=== PATIENT | male | born 1930 | race Caucasian/White ===

== ENCOUNTER 2016-12-08 13:05 | Inpatient (IN) | payer OTHER, MEDICARE ==
[2016-12-08] VITALS (16 sets, daily range): BP systolic 72–147; BP diastolic 31–101
[~2016-12-08] VITALS: Ht 177.8 cm; Wt 69.9 kg
--- NOTE | ~2016-12-08 | HC ---
[facility] [place] [address] CONSULTATION Name: ARABELLA WHITE Room #: 245-P [facility] IN M.R.#: [id number] Admission: 12/08/16 Attend Phys: Evin Frausto MD Discharge: Date of : 31 Report #: [id number] THIS REPORT FOR: //name// CC: Evin Church Kayodevicky DATE OF SERVICE: 12/08/2016 DATE OF SERVICE: 12/08/2016. REASON FOR CONSULTATION: Sepsis. IMPRESSION: 1. Severe sepsis with shock requiring fluids and pressors. 2. Possible perforated viscus per CT scan. 3. Hypertension. 4. Acute renal failure secondary to sepsis and dehydration. 5. History of dementia. PLAN: We will check with primary to see if they wish surgical consultation. In this situation, would tend toward nonaggressive abdominal but we will check if this was discussed with the family. HISTORY OF PRESENT ILLNESS: An 86-year-old male with history of dementia who had progressive worsening over the last few days, becoming more lethargic, not eating. No definite chest pain or abdominal pain, brought to the emergency room because of lethargy and a fall this morning. PAST MEDICAL HISTORY: ALLERGIES: None known. FAMILY HISTORY: Negative for lung disease. SOCIAL HISTORY: Negative ETOH or drug use. His son-in-law did not relate that he smoked. REVIEW OF SYSTEMS: Per chart. PHYSICAL EXAMINATION: VITAL SIGNS: The patient was seen in the emergency room, temperature 101, pulse 88, respiratory rate is 25, and BP 87/43. LUNGS: Decreased. HEART: Regular. The patient awakened during the exam. ABDOMEN: Bowel sounds present. Soft. Nondistended. EXTREMITIES: Right and outward rotation of right leg, son-in-law relates this [facility] [place] [address] [place] [address] CONSULTATION Name: WHITEARABELLA Harsh Room #: 245-P ADM IN M.R.#: [id number] Admission: 12/08/16 Attend Phys: Evin Frausto MD Discharge: Date of : 31 Report #: [id number] is an old situation. LABORATORY AND DIAGNOSTIC DATA: BUN 41, creatinine 3.3. Procalcitonin 177.45. PH 7.38, pCO2 of 36, pO2 of 68 on room air. Lactate was 3.09. CT abdomen and pelvis showed mural thickening of the mid, distal sigmoid colon consistent with colitis; tiny pockets of gas along anterior and inferior aspects of the bladder consistent with free air. His UA showed bacteria greater than 30 minutes, blood 3+. INR 1.2. Total bili 1.3, albumin 3.1. Chest x-ray showed no acute. CT head showed chronic change. We will follow with you. By: 1916 0111 Jackson Beard MD /nt
--- NOTE | ~2016-12-08 | HC ---
[facility] [place] [address] CONSULTATION Name: ARABELLA WHITE Room #: 245-P [facility] IN .R.#: [id number] Admission: 12/08/16 Attend Phys: Evin Frausto MD Discharge: Date of : 31 Report #: [id number] THIS REPORT FOR: //name// CC: Evin Bates INFECTIOUS DISEASE CONSULTATION REASON FOR CONSULTATION: I was asked to evaluate concerning septic shock. HISTORY OF PRESENT ILLNESS: The patient is an 86-year-old with advanced dementia, who lives at home with his family members. Four-day history of progressive lethargy and confusion. Because of this, he presented through the Emergency Room. He has had poor oral intake. No nausea, vomiting, diarrhea. In the Emergency Room, he had temperature of 38.3 with blood pressure 72/41, pulse of 88, respirations 25 and pulse ox of 98% on room air. He has received 4 liters of IV fluids. Now in the Intensive Care Unit. Unable to give any further details of his history. He is on 8 mcg of Levophed. He has a right upper extremity PICC. Indwelling Pena catheter with brown urine. ALLERGIES: None known. MEDICATIONS: As noted on his MAR, having been given vancomycin and Zosyn in the Emergency Room. PAST MEDICAL HISTORY: Hyperlipidemia and dementia. FAMILY HISTORY: Noncontributory. SOCIAL HISTORY: Nonsmoker, no significant alcohol intake. REVIEW OF SYSTEMS: Noted above. PHYSICAL EXAMINATION: VITAL SIGNS: Temperature on admission 101 degrees, blood pressure now 107/33, pulse 86, and afebrile. He had increased muscle tone. GENERAL: He was alert and cooperative. Again, unable to give me any history. Oxygen saturation on room air was adequate. He was conversant. Right upper extremity central catheter, PICC was unremarkable. He had peripheral IV in his left arm and he has left EJ. HEENT: Remarkable for dry mucous membranes. Increased muscle tone, making it difficult to assess for nuchal rigidity. LUNGS: Clear. HEART: Regular, without appreciable murmur. ABDOMEN: Firm. Mild diffuse tenderness, no guarding. No hepatosplenomegaly or mass appreciated. [facility] [address] [place] [address] CONSULTATION Name: ARABELLA WHITE Room #: 245-P ADM IN [facility].#: [id number] Admission: 12/08/16 Attend Phys: Evin Frausto MD Discharge: Date of : 31 Report #: [id number] GENITOURINARY: External genitalia unremarkable with indwelling Pena catheter. He was incontinent of soft stool. EXTREMITIES: Unremarkable. LABORATORY STUDIES: Procalcitonin 172, sodium 141, potassium 3.8, bicarbonate 24, creatinine 3.3, glucose 67, AST 42, bilirubin 1.3, alkaline phosphatase 170, ALT 27, albumin at 3.1. Lactate 12.6, INR 1.2. Hemoglobin 12.3, platelet count 187,000. WBC 14.1 with 33% bands. MRSA PCR is pending. Urinalysis: Few wbc's, many rbc's, many bacteria. ABG on room air: pO2 of 67, pCO2 of 35, pH 7.38. Blood cultures are pending. Chest x-ray: No acute process. CT scan of the head: No acute process. CT scan of the abdomen and pelvis: Basilar atelectasis, mild cardiomegaly, large left renal cyst up to 9.6 cm in diameter, 5 mm nonobstructing right renal calculus, 4 mm calculus within the proximal right ureter resulting in mild to moderate right hydronephrosis, distal ureters and urinary bladder unremarkable. Mural thickening of the mid distal sigmoid colon and rectum. Tiny pocket of gas along the anterior-anterior margin of the urinary bladder. IMPRESSION: An 86-year-old with septic shock, leukocytosis with marked left shift, acute renal failure, right ureteral obstruction and air in the bladder concerning for complicated pyelonephritis. Also, has evidence of colonic thickening to the distal colon. The patient is not having any diarrhea; therefore, this is indeterminate in etiology at this time. Underlying Alzheimer's dementia. RECOMMENDATION: Full ICU support with sepsis protocol, broad IV antibiotic therapy. We will have Urology assess the patient. <ELECTRONICALLY SIGNED> By: Steven Sommer MD 12/09/16 1147 [id number] Steven Sommer MD /nt
--- NOTE | ~2016-12-08 | EKG ---
[address] [place] [address] ELECTROCARDIOGRAM REPORT Name: CHRISTOPHERARABELLA Harsh Room #: 245-P ADM IN M.R.#: [id number] Admission: 12/08/16 Attend Phys: Evin Frausto MD Discharge: Date of : 31 Report #: [id number] THIS REPORT FOR: //name// [facility] ED Test Date: 2016-12-08 Test Time: 13:07:54 Pat Name: ARABELLA WHITE Department: Room: Counts include 234 beds at the [facility] Gender: M Client Success Specialist: PRIYA : 1930 Requested By: Earlene Casiano Order Number: [id number] MD: Toni Miranda Measurements Intervals [place] Rate: 90 P: 63 MI: 146 QRS: 74 QRSD: 132 T: -50 QT: 397 QTc: 486 Interpretive Statements Sinus rhythm Left bundle branch block No previous ECG available for comparison Electronically Signed On 12-09-2016 8:21:07 CDT by Toni Miranda [email or web address] <ELECTRONICALLY SIGNED> By: Toni Miranda MD, [facility] 12/09/16 0821 1307 1307 Toni Miranda MD, FACC /EPI
--- NOTE | ~2016-12-08 | H ---
[facility] [place] [address] HISTORY AND PHYSICAL Name: ARABELLA WHITE Room #: 245-P ADM IN M.R.#: [id number] Admission: 12/08/16 Attend Phys: Evin Frausto MD Discharge: Date of : 31 Report #: [id number] THIS REPORT FOR: //name// CC: Evin Juarez DATE OF SERVICE: 12/08/2016 DATE OF SERVICE: 12/08/2016 CHIEF COMPLAINT: Lethargy HISTORY OF PRESENT ILLNESS: The patient has underlying dementia and presently is fairly weak and not able to provide much history. History is obtained from his son-in-law present at bedside. The patient is an 86-year-old gentleman with fairly advanced dementia who lives at home with his son-in-law. He is usually able to feed himself and ambulate; however, he has been getting progressively more confused over the last 3-4 days and has been more lethargic and appearing unwell. Per his son-in-law present at bedside, he has not really reported any significant specific complaints of pain, shortness of breath, chest pain, nausea, vomiting, diarrhea or other problems. He was brought to the emergency room today where he was noted to have several signs suggestive of severe sepsis as well as profound hypotension with blood pressures in the 60-70 systolic range. He is being treated empirically for severe sepsis and is being admitted to the ICU at this time. PAST MEDICAL HISTORY: Includes: 1. Dementia. 2. Hyperlipidemia. SOCIAL HISTORY: No alcohol or drug use reported. MEDICATIONS: Refer to reconciliation note. ALLERGIES: NO KNOWN DRUG ALLERGIES. REVIEW OF SYSTEMS: Unable to obtain review of systems as the patient is confused. FAMILY HISTORY: Not relevant in this elderly gentleman. PHYSICAL EXAMINATION: VITAL SIGNS: Afebrile, pulse of 87, respiratory rate 16, blood pressure 88/41, O2 sat 98% on nasal cannula. GENERAL: Elderly gentleman in no acute distress, awake and interactive, though [facility] [place] [address] HISTORY AND PHYSICAL Name: CHRISTOPHERARABELLA Harsh Room #: 245-P [facility] IN ..#: [id number] Admission: 12/08/16 Attend Phys: Evin Frausto MD Discharge: Date of : 31 Report #: [id number] not oriented. CARDIOVASCULAR: S1 and S2 present, regular. RESPIRATORY: Air entry present bilaterally. ABDOMEN: Soft, nontender. EXTREMITIES: Without edema. NEUROLOGIC: Awake, alert and able to nod to questions; however, not well oriented, no obvious focality. SKIN: Dry. LABS AND INVESTIGATIONS: CBC notable for leukocytosis of 14.1. Hemoglobin 12.3, 33% bands noted. ABG with pH 7.3, pCO2 of 29, pO2 of 75. Prior VBG with lactic acidosis 7.7, down from prior lactic acidosis of 12.6. Chemistry with BUN and creatinine elevation at 33 and 3.3. Urinalysis with trace ketones, trace leukocyte esterase, bacteria as well as wbc's noted. RADIOLOGIC IMAGING: Chest x-ray shows no acute findings. CT head shows no acute findings. ASSESSMENT AND PLAN: This is a critically ill 86-year-old gentleman with septic shock/severe sepsis of unclear source: 1. Severe sepsis/septic shock. The patient may have a urinary source to his symptoms. At the present time, he has been started on broad-spectrum antibiotic coverage in the Emergency Room with vancomycin as well as Zosyn, which will be continued. He is also requiring pressor support with Levophed and this will be continued. We will attempt to obtain central access with a PICC line. He has also had massive volume fluid resuscitation, which will be continued. We will monitor end points of resuscitation and assess for improvement. We will try and obtain a CT abdomen noncontrast to see if he has any acute abdominal process contributing to his symptoms, but this is less likely based on his clinical exam. His primary suspected source remains urine at the present time. 2. Hypotension in the setting of severe sepsis. 3. Acute renal failure in the setting of severe sepsis with probable acute tubular necrosis. Monitor for improvement. 4. DVT prophylaxis. We will start the patient on a subQ heparin. 5. Dementia with underlying confusion worsened in the setting of metabolic encephalopathy from sepsis. 6. Code status: The patient is a DNR/DNI, which was confirmed with his son-in-law at bedside who is his DPOA. This patient's condition remains guarded at this time with high likelihood of possible deterioration. We will continue close monitoring at the present and ICU care as able. [address] [address] HISTORY AND PHYSICAL Name: ARABELLA WHITE Room #: 245-P ADM IN M.R.#: [id number] Admission: 12/08/16 Attend Phys: Evin Frausto MD Discharge: Date of : 31 Report #: [id number] Thirty-five minutes critical care time spent with this patient today. <ELECTRONICALLY SIGNED> By: Evin Frausto MD 12/09/16 1258 1559 1653 Evin Frausto MD /nt
[2016-12-08 13:23] LABS: HEMOGLOBIN 12.3 gm/dL (14.0-18.0); MCH 33.3 pg (26.0-34.0); MCHC 33.2 g/dL (28.0-37.0); MCV 100.2 fL (80.0-100.0); PLATELET COUNT 187 thou/uL (150-400); RBC 3.69 mil/uL (4.50-6.00); RDW 14.3 % (10.5-14.5); WBC 14.1 thou/uL (4.0-11.0)
[2016-12-08 13:26] LABS: MANUAL DIFF YES
[2016-12-08 13:27] LABS: POC CA IONIZED 4.4 mg/dL (4.5-5.3); POC CREATININE 3.3 mg/dL (0.6-1.3); POC HEMOGLOBIN 13.3 g/dL (14.0-18.0); POC POTASSIUM 4.1 mmol/L (3.5-5.1)
[2016-12-08 14:04] LABS: ABG SAMPLE TYPE ARTERIAL; HCO3 16.3 mmol/L (22.0-26.0); O2(CT) 14.2 mL/dL (15.0-23.0); O2Hb 94.1 % (92.0-98.0); PCO2 29.5 mmHg (35.0-45.0); PO2 75.4 mmHg (80.0-100.0); sO2 94.9 % (92.0-98.0); tCO2 17.2 mmol/L (24.0-30.0)
[2016-12-08 14:05] LABS: LACTATE 7.74 mmol/L (0.5-2.0); STICK SITE R.BRACHIAL
[2016-12-08 14:20] LABS: ALBUMIN 3.1 g/dL (3.4-5.0); DIRECT BILIRUBIN 0.4 mg/dL (<0.1-0.3); TOTAL BILIRUBIN 1.3 mg/dL (<0.1-1.0); TOTAL PROTEIN 6.4 g/dL (6.4-8.2)
[2016-12-08 14:36] LABS: ABSOLUTE NEUTROPHILS 12.7 thou/uL (1.4-8.2); MYELOCYTES 2 %; TOTAL CELL COUNT 100
[2016-12-08 14:37] LABS: ANISOCYTOSIS 1+; MICROCYTES SLIGHT; POLYCHROMASIA SLIGHT
[2016-12-08 14:47] LABS: INR 1.2
[2016-12-08 14:49] LABS: URINE BLOOD 3+ (Negative); URINE COLOR BROWN; URINE GLUCOSE-RANDOM* NEGATIVE (Negative); URINE KETONES TRACE (Negative); URINE NITRITE NEGATIVE (Negative); URINE PROTEIN (DIPSTICK) 1+ (Negative); URINE SPECIFIC GRAVITY 1.025 (1.003-1.035)
[2016-12-08 14:55] LABS: ICTOTEST (BILI CONFIRMATORY) Negative (Negative); URINE BILIRUBIN NEGATIVE (Negative)
[2016-12-08 15:47] LABS: CASTS None Seen /LPF (None Seen); SQUAMOUS 4-10 Moderate /LPF (0-3)
[2016-12-08 15:48] LABS: BACTERIA >30 Many /HPF (None Seen); CRYSTALS None Seen /LPF (None Seen); URINE RBC >20 Many /HPF (0-2); URINE WBC 6-15 Few /HPF (0-5)
[2016-12-08 17:41] LABS: ABG SAMPLE TYPE ARTERIAL; BE(vivo) -3.8 mmol/L (-2 to +3); HCO3 20.8 mmol/L (22.0-26.0); LACTATE 3.09 mmol/L (0.5-2.0); O2(CT) 15.4 mL/dL (15.0-23.0); O2Hb 92.6 % (92.0-98.0); PCO2 35.9 mmHg (35.0-45.0); PO2 67.8 mmHg (80.0-100.0); STICK SITE R.RADIAL; sO2 93.4 % (92.0-98.0); tCO2 21.9 mmol/L (24.0-30.0)
[2016-12-08 18:09] LABS: CALCIUM 7.3 mg/dL (8.5-10.1); CREATININE 3.3 mg/dL (0.7-1.3); POTASSIUM 3.8 mmol/L (3.5-5.1)
[2016-12-08] MEDS ORDERED: GABAPENTIN 100100 MG PO (18:25)
[2016-12-08] MEDS ORDERED: ARICEPT 5 MG TAB5 MG PO (18:26)
[2016-12-08] MEDS ORDERED: CELEXA20 MG PO (18:26)
[2016-12-08] MEDS ORDERED: TRAZODONE HCL50 MG PO (18:26)
[2016-12-08] MEDS ORDERED: ZOCOR20 MG PO (18:26)
[2016-12-08] MEDS ORDERED: CELEBREX 200 M200 M1 PO (18:27)
[2016-12-08 22:39] LABS: CREATININE 3.4 mg/dL (0.7-1.3)
[2016-12-08 22:50] LABS: FIBRINOGEN 352.7 mg/dL (210-360); INR 1.3; PROTIME 12.9 Seconds (9.3-11.4)
[2016-12-09] VITALS (91 sets, daily range): BP systolic 65–133; BP diastolic 39–96
[2016-12-09 01:51] LABS: HEMATOCRIT 30.3 % (42.0-52.0); MCH 33.3 pg (26.0-34.0); MCHC 33.5 g/dL (28.0-37.0); MCV 99.2 fL (80.0-100.0); PLATELET COUNT 100 thou/uL (150-400); RBC 3.06 mil/uL (4.50-6.00); RDW 14.4 % (10.5-14.5); WBC 20.2 thou/uL (4.0-11.0)
[2016-12-09 02:13] LABS: ALBUMIN 2.1 g/dL (3.4-5.0); CALCIUM 6.9 mg/dL (8.5-10.1); CREATININE 3.6 mg/dL (0.7-1.3); POTASSIUM 3.7 mmol/L (3.5-5.1); TOTAL BILIRUBIN 1.4 mg/dL (<0.1-1.0); TOTAL PROTEIN 4.8 g/dL (6.4-8.2)
[2016-12-09 02:32] LABS: HEMOGLOBIN 10.2 gm/dL (14.0-18.0)
[2016-12-09 02:42] LABS: MANUAL DIFF YES
[2016-12-09 05:24] LABS: ABG SAMPLE TYPE ARTERIAL; BE(vivo) -9.2 mmol/L (-2 to +3); LACTATE 3.36 mmol/L (0.5-2.0); O2(CT) 15.1 mL/dL (15.0-23.0); O2Hb 92.3 % (92.0-98.0); PCO2 32.8 mmHg (35.0-45.0); PO2 66.5 mmHg (80.0-100.0); STICK SITE R.RADIAL; pH 7.307 (7.360-7.450); sO2 91.7 % (92.0-98.0)
[2016-12-09 05:25] LABS: ABG COMMENT ROOM AIR
[2016-12-09 06:56] LABS: ABSOLUTE NEUTROPHILS 19.2 thou/uL (1.4-8.2); METAMYELOCYTES 1 %; TOTAL CELL COUNT 100
[2016-12-09 06:57] LABS: ANISOCYTOSIS 1+; BURR CELLS 1+; POLYCHROMASIA OCCASIONAL
[2016-12-09 07:41] LABS: HEMOGLOBIN 10.7 gm/dL (14.0-18.0); MCH 33.2 pg (26.0-34.0); MCHC 33.4 g/dL (28.0-37.0); MCV 99.6 fL (80.0-100.0); RBC 3.21 mil/uL (4.50-6.00); RDW 14.3 % (10.5-14.5); WBC 22.5 thou/uL (4.0-11.0)
[2016-12-09 07:42] LABS: CALCIUM 6.9 mg/dL (8.5-10.1); CREATININE 3.4 mg/dL (0.7-1.3)
[2016-12-10] VITALS (71 sets, daily range): BP systolic 63–154; BP diastolic 34–107
[2016-12-10 07:10] LABS: HEMATOCRIT 28.5 % (42.0-52.0); HEMOGLOBIN 10.1 gm/dL (14.0-18.0); MCH 34.1 pg (26.0-34.0); MCHC 35.3 g/dL (28.0-37.0); MCV 96.4 fL (80.0-100.0); RBC 2.95 mil/uL (4.50-6.00); RDW 14.4 % (10.5-14.5); WBC 20.8 thou/uL (4.0-11.0)
[2016-12-10 07:20] LABS: MANUAL DIFF YES
[2016-12-10 07:27] LABS: CALCIUM 6.9 mg/dL (8.5-10.1); CREATININE 2.8 mg/dL (0.7-1.3); POTASSIUM 3.5 mmol/L (3.5-5.1)
[2016-12-10 09:21] LABS: ABSOLUTE NEUTROPHILS 19.1 thou/uL (1.4-8.2); METAMYELOCYTES 1 %; TOTAL CELL COUNT 100
[2016-12-10 09:22] LABS: ANISOCYTOSIS SLIGHT
[2016-12-10 09:26] LABS: PLATELET COUNT 80 thou/uL (150-400)
[2016-12-11 05:32] VITALS: BP 97/51
[2016-12-11 07:59] VITALS: BP 96/51
[2016-12-11 16:23] VITALS: BP 101/56
== END 2016-12-11 16:35 | disposition hospice, inpatient (51) | DRG 871 ==
LOC: ER 13:05 → ICU 14:28 → EROBS 14:28 → ICU 16:21
PROVIDERS: Emergency Medicine; Family Medicine; Hospitalist; Internal Medicine Pulmonary Disease
PROC: 02HV33Z Insertion of Infusion Device into Superior Vena Cava, Percutaneous Approach (ICD-10-PCS; 2016-12-08)
PROC: 0T9030Z Drainage of Right Kidney with Drainage Device, Percutaneous Approach (ICD-10-PCS; principal; 2016-12-09)
DX: A41.50 Gram-negative sepsis, unspecified (principal); N17.0 Acute kidney failure with tubular necrosis; G93.41 Metabolic encephalopathy; R65.21 Severe sepsis with septic shock; N39.0 Urinary tract infection, site not specified; N13.2 Hydronephrosis with renal and ureteral calculous obstruction; E87.2 Acidosis; F02.81 Dementia in other diseases classified elsewhere, unspecified severity, with behavioral disturbance; E78.5 Hyperlipidemia, unspecified; Z66 Do not resuscitate; I10 Essential (primary) hypertension; E86.0 Dehydration; G30.9 Alzheimer's disease, unspecified
CPT/HCPCS: 10078; 27000